=== PATIENT | female | born 1960 | race American Indian/Alaskan Native ===

== ENCOUNTER 2018-02-27 15:47 | Inpatient (IN) | payer MEDICARE, OTHER ==
[2018-02-27 16:29] VITALS: BMI 25.4
--- NOTE | 2018-02-27 17:16 | ED PDOC ---
Arrival/HPI - General Chief Complaint: High Blood Pressure Time Seen by Provider: 02/27/18 16:19 Historian: Patient - History of Present Illness Narrative History of Present Illness (Text): 02/27/18 17:12 57 year old female whose past medical history includes MS, who presents to the Emergency department for persistent elevated blood pressure. 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 Per patient's daughter she has been experiencing intermittent dizziness, left sided facial numbness and tingling, and increased difficulty ambulating. She was scheduled for a head and neck MRI with in March. Patient denies fevers, chills, cough, shortness of breath, chest pain, dyspnea on exertion, abdominal pain, nausea, vomiting, diarrhea, back pain, neck pain, headache, or any other complaint. 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 stroke 1988) Hx Multiple Sclerosis: Yes - Musculoskeletal/Rheumatological Hx Falls: No - Psychiatric Hx Substance Use: No - Surgical History Hx Section: Yes (x1) Hx Hysterectomy: Yes Hx Tonsillectomy: Yes Other/Comment: breasy cyst. back sx - Anesthesia Hx Anesthesia: Yes Hx Anesthesia Reactions: No Hx Malignant Hyperthermia: No - Suicidal Assessment Feels Threatened In Home Enviroment: No Family/Social History - Physician Review Nursing Documentation Reviewed: Yes Family/Social History: No Known Family HX Smoking Status: Never Smoked Hx Alcohol Use: No Hx Substance Use: No Hx Substance Use Treatment: No Allergies/Home Meds Allergies/Adverse Reactions: Allergies codeine Allergy (Verified 02/27/18 16:07) ITCHING Home Medications: Home Meds Medication Instructions Recorded Confirmed Dalfampridine [Ampyra] 10 mg PO BID 10/02/14 02/27/18 Gabapentin [Neurontin] 1 cap PO HS 02/27/18 02/27/18 Interferon Beta-1A/Albumin [Avonex 1 kit SC Q7D 02/27/18 02/27/18 30 Mcg Vial Kit] Rosuvastatin Calcium 10 mg PO DAILY 02/27/18 02/27/18 Review of Systems - Physician Review All systems were reviewed & negative as marked: Yes - Review of Systems Constitutional: absent: Fevers, Night Sweats Respiratory: absent: SOB, Cough Cardiovascular: absent: Chest Pain, SEXTON Gastrointestinal: absent: Abdominal Pain, Diarrhea, Nausea, Vomiting Genitourinary Female: absent: Urine Output Changes Musculoskeletal: absent: Back Pain, Neck Pain Neurological: Dizziness, Other (difficulty ambulating; left sided facial numbness and tingling) Physical Exam Vital Signs Reviewed: Yes Vital Signs Temp Pulse Resp BP Pulse Ox 02/27/18 16:11 98.9 F 79 18 132/79 96 Temperature: Afebrile Blood Pressure: Normal Pulse: Regular Respiratory Rate: Normal Appearance: Positive for: Well-Appearing Pain Distress: None Mental Status: Positive for: Alert and Oriented X 3 - Systems Exam Head: Present: Atraumatic, Normocephalic Pupils: Present: PERRL Extroacular Muscles: Present: EOMI Conjunctiva: Present: Normal Mouth: Present: Moist Mucous Membranes Neck: Present: Normal Range of Motion Respiratory/Chest: Present: Clear to Auscultation, Good Air Exchange. No: Respiratory Distress, Accessory Muscle Use Cardiovascular: Present: Regular Rate and Rhythm, Normal S1, S2. No: Murmurs Abdomen: No: Tenderness, Distention, Peritoneal Signs Back: Present: Normal Inspection. No: Paraspinal Tenderness Upper Extremity: Present: Normal Inspection, Other (Motor strength 5/5 for bilateral upper extremities.). No: Cyanosis, Edema Lower Extremity: Present: Normal Inspection, NORMAL PULSES (Distal pulses are equal and intact.), Other (Motor strength 5/5 for bilateral lower extremities.). No: Edema Neurological: Present: GCS=15, CN II-XII Intact, Speech Normal, Normal Sensory Function, Other (No facial asymetry, no Dysarthria. Gait:limping.). No: Gait Normal Skin: Present: Warm, Dry, Normal Color. No: Rashes Psychiatric: Present: Alert, Oriented x 3, Normal Insight, Normal Concentration Medical Decision Making ED Course and Treatment: 02/27/18 17:10 Impression: 57 year old female complaining of persistent elevated blood pressure. Differential Diagnosis included but are not limited to: MS flare TIA/CVA Cerebellar stroke Plan: -- Head CT without contrast -- Labs -- Blood work -- Brain MRI without contrast -- Urinalysis -- Reassess and disposition Prior Visits: Notes and results from previous visits were reviewed. Progress Notes: 03/05/18 18:24 CTH negative for acute intracranial abnormalities. UA shows findings consistent with UTI. Brain MRI ordered after consult with neurologist. Spoke with medical insurance collector and Dr. Lilly(house staff) regarding patient's condition. Patient updated on plan for admission and is in agreement. - Lab Interpretations I have reviewed the lab results: Yes - Scribe Statement The provider has reviewed the documentation as recorded by the Scribblanca Guevara Provider Scribe Attestation: All medical record entries made by the Scribe were at my direction and personally dictated by me. I have reviewed the chart and agree that the record accurately reflects my personal performance of the history, physical exam, medical decision making, and the department course for this patient. I have also personally directed, reviewed, and agree with the discharge instructions and disposition. Disposition/Present on Arrival - Present on Arrival Any Indicators Present on Arrival: No History of DVT/PE: No History of Uncontrolled Diabetes: No Urinary Catheter: No History of Decub. Ulcer: No History Surgical Site Infection Following: None - Disposition Have Diagnosis and Disposition been Completed?: Yes Diagnosis: Urinary tract infection Disposition: HOSPITALIZED Disposition Time: 18:35 Condition: GOOD
[2018-02-27 18:07] LABS: BASO # 0.01 K/mm3 (0.0-2.0); BASO % 0.3 % (0.0-3.0); EOS # 0.1 (0.0-0.7); EOS % 2.4 % (1.5-5.0); GRAN # 1.66 (1.4-6.5); GRAN % 43.9 % (50.0-68.0); HEMOGLOBIN 10.7 g/dL (12.0-16.0); LYMPH # 1.7 (1.2-3.4); LYMPH % 44.7 % (22.0-35.0); MEAN CELL VOLUME 88.8 fl (80.0-105.0); MEAN CORPUSCULAR HEMOGLOBIN 28.5 pg (25.0-35.0); MEAN CORPUSCULAR HGB CONC 32.1 g/dl (31.0-37.0); MEAN PLATELET VOLUME 10.3 fl (7.0-11.0); MONO # 0.3 (0.1-0.6); MONO % 8.7 % (1.0-6.0); RBC 3.75 10^6/uL (3.5-6.1); RED CELL DISTRIBUTION WIDTH 13.5 % (11.5-14.5); WHITE BLOOD COUNT 3.8 10^3/ul (4.5-11.0)
[2018-02-27 18:17] LABS: INR 0.95; PARTIAL THROMBOPLASTIN TIME 32.9 Seconds (25.1-36.5); PROTHROMBIN TIME 10.8 SECONDS (9.4-12.5)
[2018-02-27 18:22] LABS: ALBUMIN 4.4 g/dL (3.0-4.8); ALT/SGPT 16 U/L (7-56); AST/SGOT 39 U/L (14-36); BLOOD UREA NITROGEN 8 mg/dL (7-21); CALCIUM 9.1 mg/dL (8.4-10.5); GFR NON-AFRICAN AMERICAN > 60
[2018-02-27 18:52] LABS: URINE BILIRUBIN NEGATIVE (NEGATIVE); URINE BLOOD NEGATIVE (NEGATIVE); URINE GLUCOSE (UA) NEGATIVE (NEGATIVE); URINE LEUKOCYTE ESTERASE SMALL Leu/uL (NEGATIVE); URINE PROTEIN NEGATIVE mg/dL (<30 mg/dL); URINE UROBILINOGEN 0.2 E.U./dL (<1 E.U./dL)
[2018-02-27 18:58] LABS: URINE APPEARANCE SL CLOUDY (CLEAR); URINE COLOR YELLOW (YELLOW)
[2018-02-27 19:00] LABS: URINE BACTERIA MANY (NEG); URINE RBC NEGATIVE /hpf (0-2)
--- NOTE | 2018-02-27 20:08 | CP.PCM.HP ---
Addendum entered and electronically signed by Hector Bey DO 02/28/18 00:05: HTN 2/2 MS vs Medications: lopressor 25mg BID, hold if SBP<100, HR<60 URI/UTI: Rocephin and Levaquin, ID Consulted Anemia: fu anemia workup, Dr. 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 Patient reported it was in 180s but she did not have symptoms at that time. Patient has MS with last hospital admission due to relapse on 09/2014. Patient has been using cane to ambulate due to left sided weakness in upper and lower limbs. Weakness and numbness got worse yesterday on the same side. Left sided facial numbness and tingling reported as well without facial droop. She has been experiencing intermittent dizziness and increased difficulty ambulating lately and she knew that she is getting an MS flare. Patient reported that her daughter got URI last week and the patient got symptoms of dry cough, sore throat, nasal congestion for the past 5 days. She also reported that she had one episode of urine incontinence today but denied dysurea, urgency, frequncy. Patient denies fevers, chills, shortness of breath, chest pain, dyspnea on exertion, abdominal pain, nausea, vomiting, diarrhea, back pain, neck pain, headache, or any other complaint. PMHx: Multiple Sclerosis PSHx: , breasy cyst All: codeine (itching) Meds: Avonex, gabapentine, Ampyra SocHx: denies smoking, alcohol or drug use. 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 stroke 1988) Hx Multiple Sclerosis: Yes - MUSCULOSKELETAL/RHEUMATOLOGICAL Hx Falls: No - PSYCHIATRIC Hx Substance Use: No - SURGICAL HISTORY Hx Section: Yes (x1) Hx Hysterectomy: Yes Hx Tonsillectomy: Yes Other/Comment: breasy cyst. back sx - ANESTHESIA Hx Anesthesia: Yes Hx Anesthesia Reactions: No Hx Malignant Hyperthermia: No Meds Allergies/Adverse Reactions: Allergies Allergy/AdvReac Type Severity Reaction Status Date / Time codeine Allergy ITCHING Verified 02/27/18 16:07 Physical Exam - Constitutional Appears: Well, No Acute Distress - Head Exam Head Exam: ATRAUMATIC, NORMOCEPHALIC - Eye Exam Eye Exam: EOMI, Normal appearance, PERRL Pupil Exam: NORMAL ACCOMODATION, PERRL - ENT Exam ENT Exam: Mucous Membranes Moist, Normal Oropharynx - Neck Exam Neck exam: Positive for: Full Rom, Normal Inspection - Respiratory Exam Respiratory Exam: Clear to Auscultation Bilateral, NORMAL BREATHING PATTERN - Cardiovascular Exam Cardiovascular Exam: REGULAR RHYTHM, +S1, +S2. absent: Diastolic murmur, Rubs - GI/Abdominal Exam GI & Abdominal Exam: Normal Bowel Sounds, Soft. absent: Tenderness - Extremities Exam Extremities exam: Positive for: normal capillary refill, pedal pulses present. Negative for: pedal edema Additional comments: 5/5 RLL, 5/5 RUL 4/5 LLL, 4/5 TESHA decreased sensation on left sisde of the body compared to the right Results - Vital Signs Recent Vital Signs: Last Vital Signs Temp 98.9 F 02/27/18 19:04 Pulse 60 02/27/18 19:52 Resp 18 02/27/18 19:52 BP 148/78 02/27/18 19:52 Pulse Ox 100 02/27/18 19:52 - Labs Result Diagrams: 02/27/18 17:45 02/27/18 17:45 Labs: Laboratory Results - last 24 hr 02/27/18 02/27/18 02/27/18 17:45 17:45 17:45 WBC 3.8 L D RBC 3.75 Hgb 10.7 L Hct 33.3 L MCV 88.8 MCH 28.5 MCHC 32.1 RDW 13.5 Plt Count 248 MPV 10.3 Gran % 43.9 L Lymph % (Auto) 44.7 H Gaines % (Auto) 8.7 H Eos % (Auto) 2.4 Baso % (Auto) 0.3 Gran # 1.66 Lymph # (Auto) 1.7 Gaines # (Auto) 0.3 Eos # (Auto) 0.1 Baso # (Auto) 0.01 ESR 62 H PT 10.8 INR 0.95 APTT 32.9 Sodium 141 Potassium 3.9 Chloride 105 Carbon Dioxide 28 Anion Gap 12 BUN 8 Creatinine 0.7 Est GFR ( Amer) > 60 Est GFR (Non-Af Amer) > 60 Random Glucose 109 Calcium 9.1 Total Bilirubin 0.5 AST 39 H ALT 16 Alkaline Phosphatase 73 Total Protein 8.9 H Albumin 4.4 Globulin 4.5 Albumin/Globulin Ratio 1.0 L Urine Color Urine Appearance Urine pH Ur Specific [place] Urine Protein Urine Glucose (UA) Urine Ketones Urine Blood Urine Nitrate Urine Bilirubin Urine Urobilinogen Ur Leukocyte Esterase Urine RBC Urine WBC Ur Epithelial Cells Urine Bacteria 02/27/18 18:41 WBC RBC Hgb Hct MCV MCH MCHC RDW Plt Count MPV Gran % Lymph % (Auto) Gaines % (Auto) Eos % (Auto) Baso % (Auto) Gran # Lymph # (Auto) Gaines # (Auto) Eos # (Auto) Baso # (Auto) ESR PT INR APTT Sodium Potassium Chloride Carbon Dioxide Anion Gap BUN Creatinine Est GFR ( Amer) Est GFR (Non-Af Amer) Random Glucose Calcium Total Bilirubin AST ALT Alkaline Phosphatase Total Protein Albumin Globulin Albumin/Globulin Ratio Urine Color Yellow Urine Appearance Sl cloudy Urine pH 6.0 Ur Specific [place] 1.010 Urine Protein Negative Urine Glucose (UA) Negative Urine Ketones Negative Urine Blood Negative Urine Nitrate Positive H Urine Bilirubin Negative Urine Urobilinogen 0.2 Ur Leukocyte Esterase Small H Urine RBC Negative Urine WBC 2 - 5 Ur Epithelial Cells 3 - 4 Urine Bacteria Many Assessment & Plan - Assessment and Plan (Free Text) Assessment: 57 year old female with PMH of Multiple Sclerosis presents to the ED for elevated blood pressure 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 In ED, UA +LE and nitrate. elevated ESR. Brain MRI and head CT ordered. Patient admitted for possible MS flare Plan: Worsening left side weakness and decreased sensation in the setting of MS likely MS flare exacerbated by UTI versus URI vs bacterial infection CT head ordered MRI brain ordered PT eval/treat OT ESR elevated -62 UTI UA +LE and nitrate urine culture blood culture procal continue rocephin URI dry cough with recent sick contact rapid flu A/B Elevated blood pressure in 180s during outpatient visit. 152/79 in ED no h/o HTN continue to monitor Weight gain gained 10 lb in the last month. unintentional TSH ordered Prophylaxis DVT ppx: SCD GI ppx: protonix regular diet Case reviewed and paln discussed with attending Dr Lilly
[2018-02-27] MEDS ORDERED: Sodium Chloride 0.9% 1,000 ML IV SCH (21:15)
[2018-02-27 21:30] LABS: IRON 90 ug/dL (45-180)
[2018-02-27 21:40] LABS: % IRON SATURATION 26 % (20-55); TOTAL IRON BINDING CAPACITY 349 ug/dL (265-497)
[2018-02-28 07:25] LABS: BASO # 0.01 K/mm3 (0.0-2.0); BASO % 0.3 % (0.0-3.0); EOS # 0.1 (0.0-0.7); GRAN # 1.28 (1.4-6.5); GRAN % 36.8 % (50.0-68.0); HEMOGLOBIN 10.2 g/dL (12.0-16.0); LYMPH # 1.8 (1.2-3.4); LYMPH % 51.1 % (22.0-35.0); MEAN CELL VOLUME 90.1 fl (80.0-105.0); MEAN CORPUSCULAR HEMOGLOBIN 28.1 pg (25.0-35.0); MEAN CORPUSCULAR HGB CONC 31.2 g/dl (31.0-37.0); MEAN PLATELET VOLUME 10.5 fl (7.0-11.0); MONO # 0.3 (0.1-0.6); MONO % 7.8 % (1.0-6.0); RBC 3.63 10^6/uL (3.5-6.1); RED CELL DISTRIBUTION WIDTH 13.5 % (11.5-14.5); WHITE BLOOD COUNT 3.5 10^3/ul (4.5-11.0)
[2018-02-28 07:46] LABS: ALT/SGPT 14 U/L (7-56); AST/SGOT 30 U/L (14-36); BLOOD UREA NITROGEN 9 mg/dL (7-21); CALCIUM 8.5 mg/dL (8.4-10.5); GFR NON-AFRICAN AMERICAN > 60
--- NOTE | 2018-02-28 08:01 | CT ---
Date of service: 02/27/2018 PROCEDURE: CT HEAD WITHOUT CONTRAST. HISTORY: elevated bp w/ h/o MS COMPARISON: 03/18/2015 TECHNIQUE: Axial computed tomography images were obtained through the head/brain without intravenous contrast. Radiation dose: Total exam DLP = 750 mGy-cm. This CT exam was performed using one or more of the following dose reduction techniques: Automated exposure control, adjustment of the mA and/or kV according to patient size, and/or use of iterative reconstruction technique. FINDINGS: HEMORRHAGE: No intracranial hemorrhage. BRAIN: No mass effect or edema. Severe chronic microvascular changes are seen in the periventricular and deep white matter left greater than right. There is also moderate atrophy considering the patient's age. Findings are unchanged VENTRICLES: Unremarkable. No hydrocephalus. CALVARIUM: Unremarkable. PARANASAL SINUSES: Unremarkable as visualized. No significant inflammatory changes. MASTOID AIR CELLS: Unremarkable as visualized. No inflammatory changes. OTHER FINDINGS: The report concurs with the preliminary report IMPRESSION: No acute intracranial findings
--- NOTE | 2018-02-28 08:05 | CP.PCM.PN ---
<Sadaf Neal - Last Filed: 02/28/18 17:22> Subjective - Date & Time of Evaluation Date of Evaluation: 02/28/18 Time of Evaluation: 11:15 - Subjective Subjective: PGY-1 Medicine Progress note for Dr. Rao's service Patient seen and examined at bedside. Patient states she still had numbness on her right side including face, arms, and legs. Patient denies fevers, chills, chest pain, sob, n/v, constipation or diarrhea. Objective - Vital Signs/Intake and Output Vital Signs (last 24 hours): Temp Pulse Resp BP Pulse Ox 97.9 F 59 L 20 117/65 98 02/28/18 06:00 02/28/18 06:00 02/28/18 06:00 02/28/18 06:00 02/28/18 06:00 Intake and Output: 02/28/18 02/28/18 06:59 18:59 Intake Total 180 Balance 180 - Medications Medications: Current Medications Acetaminophen (Tylenol 325mg Tab) 650 mg PO Q4H PRN PRN Reason: Headache Aspirin (Ecotrin) 81 mg PO DAILY MELISSA Atorvastatin Calcium (Lipitor) 40 mg PO DIN MELISSA Famotidine (Pepcid) 40 mg PO HS MELISSA Ceftriaxone Sodium (Rocephin 1 Gram Ivpb) 1 gm in 100 mls @ 100 mls/hr IVPB DA JAIDA MELISSA; Protocol Sodium Chloride (Sodium Chloride 0.45%) 1,000 mls @ 100 mls/hr IV .Q10H MELISSA Levofloxacin/Dextrose (Levaquin 750mg) 750 mg IVPB DAILY MELISSA; Protocol Methylprednisolone (Solu-Medrol) 40 mg IVP Q12 MELISSA Metoprolol Tartrate (Lopressor) 25 mg PO BID MELISSA Pantoprazole Sodium (Protonix Ec Tab) 40 mg PO 0600 MELISSA - Labs Labs: 02/28/18 07:00 02/28/18 07:00 PT 10.8 SECONDS (9.4-12.5) 02/27/18 17:45 INR 0.95 02/27/18 17:45 APTT 32.9 Seconds (25.1-36.5) 02/27/18 17:45 - Constitutional Appears: Non-toxic, No Acute Distress - Head Exam Head Exam: NORMAL INSPECTION, NORMOCEPHALIC - Eye Exam Eye Exam: EOMI, Normal appearance. absent: Nystagmus, Scleral icterus - ENT Exam ENT Exam: Mucous Membranes Moist - Respiratory Exam Respiratory Exam: Clear to Ausculation Bilateral, NORMAL BREATHING PATTERN. absent: Decreased Breath Sounds, Rhonchi, Wheezes - Cardiovascular Exam Cardiovascular Exam: REGULAR RHYTHM, +S1, +S2 - GI/Abdominal Exam GI & Abdominal Exam: Soft, Normal Bowel Sounds. absent: Distended, Firm, Guarding, Rigid, Tenderness - Extremities Exam Extremities Exam: Normal Inspection. 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 Patient states she did not receive her interferon beta shot this week. Plan: Acute Exacerbation of MS flare Neuro Consulted- Dr. Smith- recommendations appreciated 02-28-18 MRI brain - Severe chronic demyelinating disease unchange 02-28-18 CT head- No acute intracranial findings Methylprednisolone 1gm Ampyra 10mg q12 1/2 NS @ 100mls/hr PT Eval pending UTI ID consulted- Dr. Koch - recommendations appreciated 02/27/18 U/A- positive nitrates + small leukocyte esterase Rocehpin 1gm Ucx, Bcx pending Hx of CVA Lipitor 40mg po din Aspirin 1mg po daily PPx GI ppx- Protonix 40mg po DVT ppx- SCDs <Jean-Pierre Rao - Last Filed: 03/03/18 17:14> Objective - Vital Signs/Intake and Output Vital Signs (last 24 hours): Temp Pulse Resp BP Pulse Ox 97.9 F 52 L 16 139/82 95 03/03/18 14:00 03/03/18 14:00 03/03/18 14:00 03/03/18 14:00 03/03/18 14:00 - Medications Medications: Current Medications Acetaminophen (Tylenol 325mg Tab) 650 mg PO Q4H PRN PRN Reason: Headache Last Admin: 03/01/18 12:23 Dose: 650 mg Acetaminophen/Butalbital/Caffeine (Fioricet) 1 tab PO Q4H PRN PRN Reason: Headache Last Admin: 03/03/18 09:44 Dose: 1 tab Aspirin (Ecotrin) 81 mg PO DAILY [facility] Last Admin: 03/03/18 09:41 Dose: 81 mg Atorvastatin Calcium (Lipitor) 40 mg PO DIN [facility] Last Admin: 03/02/18 18:07 Dose: 40 mg Home Med (Home Med) 1 unit PO Q12H [facility] Last Admin: 03/03/18 12:50 Dose: 1 unit Meropenem (Merrem Iv 1 Gm Premix) 1 gm in 50 mls @ 100 mls/hr IVPB Q8 [facility]; Protocol Last Admin: 03/03/18 13:08 Dose: 100 mls/hr Ketorolac Tromethamine (Toradol) 15 mg IVP Q6 PRN PRN Reason: Headache Last Admin: 03/03/18 13:11 Dose: 15 mg Metoprolol Tartrate (Lopressor) 25 mg PO BID [facility] Last Admin: 02/28/18 11:41 Dose: 25 mg Pantoprazole Sodium (Protonix Ec Tab) 40 mg PO 0600 [facility] Last Admin: 03/03/18 05:31 Dose: 40 mg - Labs Labs: 03/03/18 06:00 03/03/18 06:00 PT 10.8 SECONDS (9.4-12.5) 02/27/18 17:45 INR 0.95 02/27/18 17:45 APTT 32.9 Seconds (25.1-36.5) 02/27/18 17:45 Attending/Attestation - Attestation I have personally seen and examined this patient.: Yes I have fully participated in the care of the patient.: Yes I have reviewed all pertinent clinical information, including history, physical exam and plan: Yes Notes (Text): 03/03/18 17:14 Medical record note made by the resident after discussion with my direction and input after the patient was personally seen and examined by me. I have reviewed the chart and agree that the record accurately reflects by personal performance of the history, physical exam, data review, and medical decision-making, in the course for the patient. I have also personally directed the plan of care.
--- NOTE | 2018-02-28 08:40 | RAD ---
HISTORY: Cough COMPARISON: 10/02/2014. TECHNIQUE: Chest PA and lateral FINDINGS: LINES AND TUBES: None. LUNG AND PLEURA: The lungs are well inflated and clear. No pleural effusion or pneumothorax. HEART AND MEDIASTINUM: The heart is not enlarged. The hilar and mediastinal contours are within normal limits. SKELETAL STRUCTURES: The bony structures are within normal limits for the patient's age. VISUALIZED UPPER ABDOMEN: Normal. OTHER FINDINGS: None. IMPRESSION: No active pulmonary disease.
[2018-02-28] MEDS ORDERED: levoFLOXacin 750 mg in D5W 150 ML BAG IVPB SCH (10:00)
[2018-02-28] MEDS ORDERED: MethylPREDNISolone 40 mg Vial IVP SCH ×2 (10:00)
[2018-02-28] MEDS: methylPREDNISolone 1 GM in Sodium Chloride 0.9% 250 ML IV SCH (11:42)
[2018-02-28] MEDS: Sodium Chloride 0.45% 1,000 ML IV SCH ×2 (11:51→23:05)
--- NOTE | 2018-02-28 13:06 | MRI ---
Date of service: 02/27/2018 PROCEDURE: MRI BRAIN WITHOUT CONTRAST HISTORY: h/o ms w/ ataxic gait COMPARISON: 10/05/2014 MRI TECHNIQUE: Multiplanar, multisequence MR images of the brain were obtained without intravenous contrast enhancement. FINDINGS: HEMORRHAGE: None DWI: No evidence of an acute or early subacute infarction. BRAIN PARENCHYMA: Severe chronic demyelinating disease can be seen with confluent areas of abnormal signal intensity along the periventricular white matter including the temporal and occipital horns. There is also severe thinning of the corpus callosum. The findings are unchanged VENTRICLES: Unremarkable. No hydrocephalus. CRANIUM: Unremarkable. ORBITS: Grossly unremarkable. PARANASAL SINUSES/MASTOIDS: Clear VASCULAR SYSTEM: Skull base flow voids intact. OTHER FINDINGS: None. IMPRESSION: Severe chronic demyelinating disease unchanged
[2018-02-28] MEDS: AMPYRA 10 MG PO SCH (14:01)
[2018-02-28] MEDS: cefTRIAXone 1 gm 1 GM/100 ML BAG IVPB SCH (14:02)
[2018-02-28 16:45] LABS: FERRITIN 45.6 ng/mL
[2018-02-28 17:16] LABS: FOLATE 5.9 ng/mL
--- NOTE | 2018-02-28 19:27 | CON ---
DATE: 02/28/2018 HISTORY OF PRESENT ILLNESS: This is a 57-year-old woman who has had multiple sclerosis for many years, on Avonex; history of anemia; history of tension headaches, who came in for possible MS exacerbation and more numbness on right side of her face, arms and legs and status post IV Solu-Medrol today. Her MRI of the brain just showed some severe chronic demyelinating disease. No enhancement. She is on Ampyra for her gait and ambulation 10 mg every 12 and antibiotics for underlying urinary tract infection. She is on aspirin and Lipitor for stroke prevention. Currently, no focal weakness except for her baseline, slightly weaker. She will need some outpatient physical and occupational therapy. We will complete 3 days of total of Solu-Medrol 1 g IV and then can be discharged home. Fioricet can be given for every 4 hours one tab for her headaches and consider gabapentin 100 mg p.o. at bedtime for neuropathic relief. PAST MEDICAL HISTORY: As above. SOCIAL HISTORY: No illicit drug use, smoking or EtOH abuse. REVIEW OF SYSTEMS: Fourteen-point review of systems is negative except as per the HPI. MEDICATIONS: Reviewed by nurses' reconciliation. FAMILY HISTORY: Noncontributory. ALLERGIES: CODEINE. LABORATORY DATA: Sodium is 140, potassium 4.2, chloride 106, carbon dioxide 28, BUN of 9, creatinine 0.7, random glucose 71. PHYSICAL EXAMINATION: VITAL SIGNS: Temperature 98, pulse rate of 57, blood pressure 144/82, respiratory rate of 18, oxygen saturation 96% by room air. GENERAL: The patient is sitting up in bed, in no acute distress. HEENT: Atraumatic, normocephalic. PERRLA. Extraocular muscles intact. NECK: Supple. No JVD. No adenopathy noted. LUNGS: Clear to auscultation. No adventitious sounds. HEART: S1, S2. Normal rate and rhythm. No murmurs, rubs or gallops. ABDOMEN: Soft, nontender and nondistended. Bowel sounds are present. EXTREMITIES: No clubbing. No cyanosis. Peripheral pulses 2+ felt bilaterally. NEUROLOGIC: The patient is alert and oriented to person, place, month and year. Speech is fluent without any errors. Recall after 5 minutes is 0/3. Poor attention span, slow thought process. Cranial nerves II through XII are intact. Motor exam: Moves all extremities equally, but slightly weaker in the right lower extremity when compared to the left, which is from underlying MS. Sensory exam: Decreased light touch and pinprick up to the calves bilaterally. Decreased vibration of the toes. DTRs are 2+ throughout and brisk at the knees. Coordination: [id number] intact. No dysmetria noted. Her gait is wide based and uses cane for assistance. IMPRESSION: 1. This is a mild multiple sclerosis exacerbation triggered by underlying urinary tract infection. At this time, I would recommend outpatient physical and occupational therapy for rehabilitation, muscle reconditioning and balance strengthening exercises. 2. Continue with her Avonex injections as a disease modifying therapy for underlying multiple sclerosis. 3. Solu-Medrol 1 g x3 days and then can be discharged home. 4. Fioricet 1 tab every 4 hours for acute onset of headache. 5. Consider gabapentin 100 mg p.o. at bedtime for neuropathic relief. The patient is clinically stable. Alonso Smith MD
[2018-02-28] MEDS: Apap-Butalbital-Caffeine 325-50-40mg Tab PO PRN (23:04)
[2018-03-01] MEDS: AMPYRA 10 MG PO SCH ×2 (00:19→12:18)
[2018-03-01] MEDS: Pantoprazole 40 mg EC Tab PO SCH (05:47)
[2018-03-01] MEDS: Sodium Chloride 0.45% 1,000 ML IV SCH (05:59)
--- NOTE | 2018-03-01 06:13 | CON ---
DATE: 02/28/2018 LOCATION: The patient is in room 571, bed 2. HISTORY OF PRESENT ILLNESS: The patient is a 57-year-old female with past medical history significant for multiple sclerosis, hypertension and patient was seen in the emergency room, given the diagnosis of multiple sclerosis exacerbation. Patient was seen in the emergency room because of headache, was found to have elevated blood pressure and given the diagnosis of multiple sclerosis exacerbation, concerned about infection. Patient denies any fevers, any chills. No chest pain, shortness of breath or cough at this time. REVIEW OF SYSTEMS: A 12-point review of systems is performed. No fevers. No chills. No chest pain. No dysuria or frequency. PAST MEDICAL HISTORY: Significant for multiple sclerosis, hypertension, high cholesterol, questionable cerebrovascular accident in 1988. PAST SURGICAL HISTORY: Significant for hysterectomy, tonsillectomy, breast cyst biopsy, . MEDICATIONS AT HOME: Reveals rosuvastatin, gabapentin, interferon. ALLERGIES: PATIENT IS ALLERGIC TO CODEINE. PHYSICAL EXAMINATION: GENERAL: Patient is in bed, in no acute distress, answering questions appropriately. VITAL SIGNS: Temperature 98, blood pressure is 150/100, respiratory rate 20, heart rate of 87. HEENT: Unremarkable. NECK: Supple. LUNGS: Have decreased breath sounds. HEART: Normal S1, S2. ABDOMEN: Soft, nontender. LABORATORY EXAMINATION: Reveals a white count of 3.8, hemoglobin of 10, platelets of 248. Coagulation is noted. Differential and white count is noted. Sed rate of 62. Chemistries noted with procalcitonin is noted. Urinalysis, 2 to 5 wbc's. Patient had a CAT scan of the head which is reported with no acute findings. Chest x-ray, lungs are inflated and clear, no pleural effusion or pneumothorax, no active pulmonary disease. note is reviewed. Review of orders revealed blood cultures, urine cultures are pending and patient is currently on ceftriaxone. Patient also had an MRI of the brain, which showed severe chronic demyelinating disease, unchanged. ASSESSMENT AND PLAN: This is a 57-year-old female with multiple sclerosis, hypertension, high cholesterol, cerebrovascular accident, admitted with urinary tract infection, although she is not having any symptoms at this time and patient with uncontrolled hypertension. We will check on the blood cultures, urine cultures. We will follow closely with you. Chencho Koch MD [facility] # [id number]
[2018-03-01 06:22] LABS: GRAN # 4.31 (1.4-6.5); GRAN % 79.4 % (50.0-68.0); HEMOGLOBIN 10.7 g/dL (12.0-16.0); LYMPH % 18.6 % (22.0-35.0); MEAN CELL VOLUME 89.5 fl (80.0-105.0); MEAN CORPUSCULAR HEMOGLOBIN 28.8 pg (25.0-35.0); MEAN CORPUSCULAR HGB CONC 32.2 g/dl (31.0-37.0); MEAN PLATELET VOLUME 10.6 fl (7.0-11.0); MONO # 0.1 (0.1-0.6); PLATELET COUNT 274 10^3/uL (120.0-450.0); RBC 3.71 10^6/uL (3.5-6.1); RED CELL DISTRIBUTION WIDTH 13.2 % (11.5-14.5); WHITE BLOOD COUNT 5.4 10^3/ul (4.5-11.0)
[2018-03-01 07:15] LABS: ALBUMIN 4.3 g/dL (3.0-4.8); ALT/SGPT 27 U/L (7-56); AST/SGOT 57 U/L (14-36); BLOOD UREA NITROGEN 10 mg/dL (7-21); GFR NON-AFRICAN AMERICAN > 60
[2018-03-01] MEDS: Apap-Butalbital-Caffeine 325-50-40mg Tab PO PRN ×3 (09:36→21:30)
[2018-03-01] MEDS: methylPREDNISolone 1 GM in Sodium Chloride 0.9% 250 ML IV SCH (09:37)
[2018-03-01] MEDS: cefTRIAXone 1 gm 1 GM/100 ML BAG IVPB SCH (12:18)
--- NOTE | 2018-03-01 16:34 | CP.PCM.PN ---
Subjective - Date & Time of Evaluation Date of Evaluation: 03/01/18 Time of Evaluation: 09:35 - Subjective Subjective: No fevers, no dysuria, no nausea, no diarrhea. Objective - Vital Signs/Intake and Output Vital Signs (last 24 hours): Temp Pulse Resp BP Pulse Ox 98.2 F 65 18 143/88 98 03/01/18 14:00 03/01/18 14:00 03/01/18 14:00 03/01/18 14:00 03/01/18 14:00 Intake and Output: 03/01/18 03/01/18 06:59 18:59 Intake Total 1800 Output Total 1 Balance 1800 -1 - Medications Medications: Current Medications Acetaminophen (Tylenol 325mg Tab) 650 mg PO Q4H PRN PRN Reason: Headache Last Admin: 03/01/18 12:23 Dose: 650 mg Acetaminophen/Butalbital/Caffeine (Fioricet) 1 tab PO Q4H PRN PRN Reason: Headache Last Admin: 03/01/18 16:09 Dose: 1 tab Aspirin (Ecotrin) 81 mg PO DAILY [facility] Last Admin: 03/01/18 09:36 Dose: 81 mg Atorvastatin Calcium (Lipitor) 40 mg PO DIN [facility] Last Admin: 03/01/18 16:09 Dose: 40 mg Home Med (Home Med) 1 unit PO Q12H [facility] Last Admin: 03/01/18 12:18 Dose: 1 unit Ceftriaxone Sodium (Rocephin 1 Gram Ivpb) 1 gm in 100 mls @ 100 mls/hr IVPB DAILY [facility]; Protocol Last Admin: 03/01/18 12:18 Dose: 100 mls/hr Methylprednisolone 1 gm/ (Sodium Chloride) 250 mls @ 500 mls/hr IV DAILY [facility] Stop: 03/02/18 10:29 Last Admin: 03/01/18 09:37 Dose: 500 mls/hr Metoprolol Tartrate (Lopressor) 25 mg PO BID [facility] Last Admin: 02/28/18 11:41 Dose: 25 mg Pantoprazole Sodium (Protonix Ec Tab) 40 mg PO 0600 [facility] Last Admin: 03/01/18 05:47 Dose: 40 mg - Labs Labs: 03/01/18 06:00 03/01/18 06:00 PT 10.8 SECONDS (9.4-12.5) 10/03/18 17:45 INR 0.95 02/27/18 17:45 APTT 32.9 Seconds (25.1-36.5) 02/27/18 17:45 - Constitutional Appears: Chronically Ill - Head Exam Head Exam: NORMAL INSPECTION - Respiratory Exam Respiratory Exam: Decreased Breath Sounds - Cardiovascular Exam Cardiovascular Exam: +S1, +S2 - GI/Abdominal Exam GI & Abdominal Exam: Soft. absent: Tenderness Assessment and Plan - Assessment and Plan (Free Text) Plan: Assessment consider UTI with gram negative bacilli multiple sclerosis HTN dyslipidemia possible CVA in 1988 S/P hysterectomy S/P breast cyst biopsy S/P S/P tonsillectomy Plan continue Rocephin day 2 pending identification and sensitivities of the gram negative bacilli in the urine will continue to monitor clinically
--- NOTE | 2018-03-01 17:20 | CP.PCM.PN ---
<Sadaf Neal - Last Filed: 03/01/18 17:17> Subjective - Date & Time of Evaluation Date of Evaluation: 03/01/18 Time of Evaluation: 11:00 - Subjective Subjective: PGY-1 Medicine Progress Note for Dr. Rao's service Patient seen and examined at bedside. Patient states that she feels that her left sided weakness has improved since admission. She reports frontal and sinus headache that did not resolve with Fioricet or Tylenol. Patient has had similar headache in the past, for which she experiences relief with Aleve. She reports productive cough overnight, but denies SOB, rhinorrhea, fever, chills, CP, n/v, constipation or diarrhea. Objective - Vital Signs/Intake and Output Vital Signs (last 24 hours): Temp Pulse Resp BP Pulse Ox 98.2 F 65 18 143/88 98 03/01/18 14:00 03/01/18 14:00 03/01/18 14:00 03/01/18 14:00 03/01/18 14:00 Intake and Output: 03/01/18 03/01/18 06:59 18:59 Intake Total 1800 Output Total 1 Balance 1800 -1 - Medications Medications: Current Medications Acetaminophen (Tylenol 325mg Tab) 650 mg PO Q4H PRN PRN Reason: Headache Last Admin: 03/01/18 12:23 Dose: 650 mg Acetaminophen/Butalbital/Caffeine (Fioricet) 1 tab PO Q4H PRN PRN Reason: Headache Last Admin: 03/01/18 16:09 Dose: 1 tab Aspirin (Ecotrin) 81 mg PO DAILY [facility] Last Admin: 03/01/18 09:36 Dose: 81 mg Atorvastatin Calcium (Lipitor) 40 mg PO DIN [facility] Last Admin: 03/01/18 16:09 Dose: 40 mg Home Med (Home Med) 1 unit PO Q12H [facility] Last Admin: 03/01/18 12:18 Dose: 1 unit Ceftriaxone Sodium (Rocephin 1 Gram Ivpb) 1 gm in 100 mls @ 100 mls/hr IVPB DAILY [facility]; Protocol Last Admin: 03/01/18 12:18 Dose: 100 mls/hr Methylprednisolone 1 gm/ (Sodium Chloride) 250 mls @ 500 mls/hr IV DAILY [facility] Stop: 03/02/18 10:29 Last Admin: 03/01/18 09:37 Dose: 500 mls/hr Metoprolol Tartrate (Lopressor) 25 mg PO BID [facility] Last Admin: 02/28/18 11:41 Dose: 25 mg Pantoprazole Sodium (Protonix Ec Tab) 40 mg PO 0600 [facility] Last Admin: 03/01/18 05:47 Dose: 40 mg - Labs Labs: 03/01/18 06:00 03/01/18 06:00 PT 10.8 SECONDS (9.4-12.5) 02/27/18 17:45 INR 0.95 02/27/18 17:45 APTT 32.9 Seconds (25.1-36.5) 02/27/18 17:45 - Constitutional Appears: Non-toxic, No Acute Distress - Head Exam Head Exam: NORMAL INSPECTION, NORMOCEPHALIC - Eye Exam Eye Exam: EOMI, Normal appearance. absent: Nystagmus, Scleral icterus - Respiratory Exam Respiratory Exam: Clear to Ausculation Bilateral, NORMAL BREATHING PATTERN. absent: Rales, Rhonchi, Wheezes - Cardiovascular Exam Cardiovascular Exam: REGULAR RHYTHM, +S1, +S2 - GI/Abdominal Exam GI & Abdominal Exam: Soft, Normal Bowel Sounds. absent: Distended, Firm, Guarding, Tenderness - Extremities Exam Extremities Exam: Normal Inspection. absent: Calf Tenderness, Pedal Edema - Neurological Exam Neurological Exam: Awake, Oriented x3 Neuro motor strength exam: Left Upper Extremity: 5, Right Upper Extremity: 5, Left Lower Extremity: 5, Right Lower Extremity: 5 Additional comments: sensory deficits on upper right extremity and lower extremity as compared to left; however overall improved since admission - Psychiatric Exam Psychiatric exam: Normal Affect, Normal Mood - Skin Skin Exam: Intact, Normal Color Assessment and Plan - Assessment and Plan (Free Text) Assessment: 57 year old female with PMH of Multiple Sclerosis, anemia, and stroke (>20 years) admitted for elevated blood 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 Treated with 1000g x 3 with solumedrol Plan: Acute Exacerbation of MS flare Neuro Consulted- Dr. Smith- MS exacerbation triggered by UTI, f/u outpatient PT/OT, continue Avonex, continue Solumedrol 1g IV for total of 3 days then discharge home, Fioricet 1 tab every 4 hours for MIJARES, consider 100mg PO gabapentin at bedtime for neuropathic pain. 02-28-18 MRI brain - Severe chronic demyelinating disease unchanged 02-28-18 CT head- No acute intracranial findings Methylprednisolone 1gm IV- day 2 Ampyra 10mg q12 PT Eval pending UTI ID consulted- Dr. Koch - pending blood and urine cultures, will monitor closely. 02/27/18 U/A- positive nitrates + small leukocyte esterase Rocehpin 1gm Ucx, Bcx pending Hx of CVA Lipitor 40mg po din Aspirin 1mg po daily PPx GI ppx- Protonix 40mg po DVT ppx- SCDs Medical Management discussed with Dr. Jalen Neal PGY-1 <Jean-Pierre Rao - Last Filed: 03/03/18 17:14> Objective - Vital Signs/Intake and Output Vital Signs (last 24 hours): Temp Pulse Resp BP Pulse Ox 97.9 F 52 L 16 139/82 95 03/03/18 14:00 03/03/18 14:00 03/03/18 14:00 03/03/18 14:00 03/03/18 14:00 - Medications Medications: Current Medications Acetaminophen (Tylenol 325mg Tab) 650 mg PO Q4H PRN PRN Reason: Headache Last Admin: 03/01/18 12:23 Dose: 650 mg Acetaminophen/Butalbital/Caffeine (Fioricet) 1 tab PO Q4H PRN PRN Reason: Headache Last Admin: 03/03/18 09:44 Dose: 1 tab Aspirin (Ecotrin) 81 mg PO DAILY [facility] Last Admin: 03/03/18 09:41 Dose: 81 mg Atorvastatin Calcium (Lipitor) 40 mg PO DIN [facility] Last Admin: 03/02/18 18:07 Dose: 40 mg Home Med (Home Med) 1 unit PO Q12H [facility] Last Admin: 03/03/18 12:50 Dose: 1 unit Meropenem (Merrem Iv 1 Gm Premix) 1 gm in 50 mls @ 100 mls/hr IVPB Q8 [facility]; Protocol Last Admin: 03/03/18 13:08 Dose: 100 mls/hr Ketorolac Tromethamine (Toradol) 15 mg IVP Q6 PRN PRN Reason: Headache Last Admin: 03/03/18 13:11 Dose: 15 mg Metoprolol Tartrate (Lopressor) 25 mg PO BID [facility] Last Admin: 02/28/18 11:41 Dose: 25 mg Pantoprazole Sodium (Protonix Ec Tab) 40 mg PO 0600 [facility] Last Admin: 03/03/18 05:31 Dose: 40 mg - Labs Labs: 03/03/18 06:00 03/03/18 06:00 PT 10.8 SECONDS (9.4-12.5) 02/27/18 17:45 INR 0.95 02/27/18 17:45 APTT 32.9 Seconds (25.1-36.5) 02/27/18 17:45 Attending/Attestation - Attestation I have personally seen and examined this patient.: Yes I have fully participated in the care of the patient.: Yes I have reviewed all pertinent clinical information, including history, physical exam and plan: Yes Notes (Text): 03/03/18 17:13 Medical record note made by the resident after discussion with my direction and input after the patient was personally seen and examined by me. I have reviewed the chart and agree that the record accurately reflects by personal performance of the history, physical exam, data review, and medical decision-making, in the course for the patient. I have also personally directed the plan of care.
[2018-03-02] MEDS: AMPYRA 10 MG PO SCH ×2 (00:54→12:17)
[2018-03-02 06:26] LABS: GRAN # 6.22 (1.4-6.5); LYMPH # 0.9 (1.2-3.4); LYMPH % 12.1 % (22.0-35.0); MEAN CORPUSCULAR HEMOGLOBIN 28.8 pg (25.0-35.0); MEAN CORPUSCULAR HGB CONC 32.4 g/dl (31.0-37.0); MEAN PLATELET VOLUME 10.8 fl (7.0-11.0); MONO # 0.4 (0.1-0.6); MONO % 4.9 % (1.0-6.0); RBC 3.47 10^6/uL (3.5-6.1); RED CELL DISTRIBUTION WIDTH 13.7 % (11.5-14.5); WHITE BLOOD COUNT 7.5 10^3/ul (4.5-11.0)
[2018-03-02] MEDS: Pantoprazole 40 mg EC Tab PO SCH ×2 (06:40→22:57)
[2018-03-02 06:42] LABS: ALT/SGPT 27 U/L (7-56); AST/SGOT 37 U/L (14-36); BLOOD UREA NITROGEN 13 mg/dL (7-21); CALCIUM 8.8 mg/dL (8.4-10.5); GFR NON-AFRICAN AMERICAN > 60
[2018-03-02] MEDS: cefTRIAXone 1 gm 1 GM/100 ML BAG IVPB SCH (09:58)
[2018-03-02] MEDS: methylPREDNISolone 1 GM in Sodium Chloride 0.9% 250 ML IV SCH (09:58)
[2018-03-02] MEDS: Meropenem IV 1 gm in NS 1 GM/50 ML BAG IVPB SCH ×2 (14:04→21:19)
--- NOTE | 2018-03-02 14:08 | CARD ---
APPROVED REPORT Date of service: 03/02/2018 EKG Measurement Heart [id number] MI [id number] <Conclusion> Sinus bradycardia T wave abnormality consider anterior wall ischemia Abnormal ECG
--- NOTE | 2018-03-02 16:05 | CP.PCM.PN ---
<Sadaf Neal - Last Filed: 03/02/18 16:02> Subjective - Date & Time of Evaluation Date of Evaluation: 03/02/18 Time of Evaluation: 09:15 - Subjective Subjective: PGY-1 Medicine Progress Note for Dr. Rao's service Patient seen and examined at bedside. Patient offers no acute complaints. Patient denies chest pain, sob, fevers, chills, dysuria, increased urinary frequency, n/v, constipation or diarrhea, headaches. Objective - Vital Signs/Intake and Output Vital Signs (last 24 hours): Temp Pulse Resp BP Pulse Ox 97.4 F L 53 L 18 133/73 99 03/02/18 08:18 03/02/18 08:18 03/02/18 08:18 03/02/18 08:18 03/02/18 08:18 Intake and Output: 03/02/18 03/02/18 06:59 18:59 Intake Total 240 1080 Balance 240 1080 - Medications Medications: Current Medications Acetaminophen (Tylenol 325mg Tab) 650 mg PO Q4H PRN PRN Reason: Headache Last Admin: 03/01/18 12:23 Dose: 650 mg Acetaminophen/Butalbital/Caffeine (Fioricet) 1 tab PO Q4H PRN PRN Reason: Headache Last Admin: 03/01/18 21:30 Dose: 1 tab Aspirin (Ecotrin) 81 mg PO DAILY [facility] Last Admin: 03/02/18 09:59 Dose: 81 mg Atorvastatin Calcium (Lipitor) 40 mg PO DIN [facility] Last Admin: 03/01/18 16:09 Dose: 40 mg Home Med (Home Med) 1 unit PO Q12H [facility] Last Admin: 03/02/18 12:17 Dose: 1 unit Meropenem (Merrem Iv 1 Gm Premix) 1 gm in 50 mls @ 100 mls/hr IVPB Q8 [facility]; Pr otocol Last Admin: 03/02/18 14:04 Dose: 100 mls/hr Metoprolol Tartrate (Lopressor) 25 mg PO BID [facility] Last Admin: 02/28/18 11:41 Dose: 25 mg Pantoprazole Sodium (Protonix Ec Tab) 40 mg PO 0600 [facility] Last Admin: 03/02/18 06:40 Dose: 40 mg - Labs Labs: 03/02/18 05:00 03/02/18 05:00 PT 10.8 SECONDS (9.4-12.5) 02/27/18 17:45 INR 0.95 02/27/18 17:45 APTT 32.9 Seconds (25.1-36.5) 02/27/18 17:45 - Constitutional Appears: Non-toxic, No Acute Distress - Head Exam Head Exam: NORMAL INSPECTION, NORMOCEPHALIC - Eye Exam Eye Exam: EOMI, Normal appearance. absent: Nystagmus - ENT Exam ENT Exam: Mucous Membranes Moist - Cardiovascular Exam Cardiovascular Exam: Bradycardia, REGULAR RHYTHM, +S1, +S2 - GI/Abdominal Exam GI & Abdominal Exam: Soft, Normal Bowel Sounds. 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 Treated with 1000g x 3 with solumedrol; Urine cx positive for klebsiella; Started patient on meropenem Plan: Acute Exacerbation of MS flare Neuro Consulted- Dr. Smith- MS exacerbation triggered by UTI, f/u outpatient PT/OT, continue Avonex, continue Solumedrol 1g IV for total of 3 days then discharge home, Fioricet 1 tab every 4 hours for MIJARES, consider 100mg PO gabapentin at bedtime for neuropathic pain. 02-28-18 MRI brain - Severe chronic demyelinating disease unchanged 02-28-18 CT head- No acute intracranial findings Methylprednisolone 1gm IV- day 3 and completed Ampyra 10mg q12 UTI ID consulted- Dr. Koch - pending blood and urine cultures, will monitor closely. 02/27/18 U/A- positive nitrates + small leukocyte esterase Meropenem Ucx positive for Klebsiella Hx of CVA Lipitor 40mg po din Aspirin 1mg po daily Hx of Headaches Tylenol 650mg po prn Fioricet 1 tab po q4h prn PPx GI ppx- Protonix 40mg po DVT ppx- SCDs Medical Management discussed with Dr. Jalen Neal PGY-1 <Jean-Pierre Rao - Last Filed: 03/03/18 17:13> Objective - Vital Signs/Intake and Output Vital Signs (last 24 hours): Temp Pulse Resp BP Pulse Ox 97.9 F 52 L 16 139/82 95 03/03/18 14:00 03/03/18 14:00 03/03/18 14:00 03/03/18 14:00 03/03/18 14:00 - Medications Medications: Current Medications Acetaminophen (Tylenol 325mg Tab) 650 mg PO Q4H PRN PRN Reason: Headache Last Admin: 03/01/18 12:23 Dose: 650 mg Acetaminophen/Butalbital/Caffeine (Fioricet) 1 tab PO Q4H PRN PRN Reason: Headache Last Admin: 03/03/18 09:44 Dose: 1 tab Aspirin (Ecotrin) 81 mg PO DAILY [facility] Last Admin: 03/03/18 09:41 Dose: 81 mg Atorvastatin Calcium (Lipitor) 40 mg PO DIN [facility] Last Admin: 03/02/18 18:07 Dose: 40 mg Home Med (Home Med) 1 unit PO Q12H [facility] Last Admin: 03/03/18 12:50 Dose: 1 unit Meropenem (Merrem Iv 1 Gm Premix) 1 gm in 50 mls @ 100 mls/hr IVPB Q8 [facility]; Protocol Last Admin: 03/03/18 13:08 Dose: 100 mls/hr Ketorolac Tromethamine (Toradol) 15 mg IVP Q6 PRN PRN Reason: Headache Last Admin: 03/03/18 13:11 Dose: 15 mg Metoprolol Tartrate (Lopressor) 25 mg PO BID [facility] Last Admin: 02/28/18 11:41 Dose: 25 mg Pantoprazole Sodium (Protonix Ec Tab) 40 mg PO 0600 [facility] Last Admin: 03/03/18 05:31 Dose: 40 mg - Labs Labs: 03/03/18 06:00 03/03/18 06:00 PT 10.8 SECONDS (9.4-12.5) 02/27/18 17:45 INR 0.95 02/27/18 17:45 APTT 32.9 Seconds (25.1-36.5) 02/27/18 17:45 Attending/Attestation - Attestation I have personally seen and examined this patient.: Yes I have fully participated in the care of the patient.: Yes I have reviewed all pertinent clinical information, including history, physical exam and plan: Yes Notes (Text): 03/03/18 17:10 Medical record note made by the resident after discussion with my direction and input after the patient was personally seen and examined by me. I have reviewed the chart and agree that the record accurately reflects by personal performance of the history, physical exam, data review, and medical decision-making, in the course for the patient. I have also personally directed the plan of care. 57 year old female with PMH of Multiple Sclerosis, anemia, and stroke (>20 years) was admitted for, UTI, and MS flare. she was Treated with 1000g x 3 with solumedrol; and IV Ceftriaxone .Symptoms improved but Urine cx has come back positive for klebsiella ESBL Started patient on meropenem by ID, also sensitive to cipro, We will discuss with ID regarding oral antibiotics.
--- NOTE | 2018-03-02 16:31 | CP.PCM.PN ---
Subjective - Date & Time of Evaluation Date of Evaluation: 03/02/18 Time of Evaluation: 14:25 - Subjective Subjective: No fevers, no dysuria, no nausea or diarrhea. Objective - Vital Signs/Intake and Output Vital Signs (last 24 hours): Temp Pulse Resp BP Pulse Ox 97.4 F L 53 L 18 133/73 99 03/02/18 08:18 03/02/18 08:18 03/02/18 08:18 03/02/18 08:18 03/02/18 08:18 Intake and Output: 03/02/18 03/02/18 06:59 18:59 Intake Total 240 Balance 240 - Medications Medications: Current Medications Acetaminophen (Tylenol 325mg Tab) 650 mg PO Q4H PRN PRN Reason: Headache Last Admin: 03/01/18 12:23 Dose: 650 mg Acetaminophen/Butalbital/Caffeine (Fioricet) 1 tab PO Q4H PRN PRN Reason: Headache Last Admin: 03/01/18 21:30 Dose: 1 tab Aspirin (Ecotrin) 81 mg PO DAILY [facility] Last Admin: 03/02/18 09:59 Dose: 81 mg Atorvastatin Calcium (Lipitor) 40 mg PO DIN [facility] Last Admin: 03/01/18 16:09 Dose: 40 mg Home Med (Home Med) 1 unit PO Q12H [facility] Last Admin: 03/02/18 12:17 Dose: 1 unit Metoprolol Tartrate (Lopressor) 25 mg PO BID [facility] Last Admin: 02/28/18 11:41 Dose: 25 mg Pantoprazole Sodium (Protonix Ec Tab) 40 mg PO 0600 [facility] Last Admin: 03/02/18 06:40 Dose: 40 mg - Labs Labs: 03/02/18 05:00 03/02/18 05:00 PT 10.8 SECONDS (9.4-12.5) 02/27/18 17:45 INR 0.95 02/27/18 17:45 APTT 32.9 Seconds (25.1-36.5) 02/27/18 17:45 - Constitutional Appears: No Acute Distress, Chronically Ill - Head Exam Head Exam: NORMAL INSPECTION - Respiratory Exam Respiratory Exam: Decreased Breath Sounds - Cardiovascular Exam Cardiovascular Exam: +S1, +S2 - GI/Abdominal Exam GI & Abdominal Exam: Soft. absent: Tenderness Assessment and Plan - Assessment and Plan (Free Text) Plan: Assessment UTI with ESBL Klebsiella multiple sclerosis HTN dyslipidemia possible CVA in 1988 S/P hysterectomy S/P breast cyst biopsy S/P S/P tonsillectomy Plan will switch to Merrem - will need 7-10 days of antibiotics will continue to monitor clinically
[2018-03-02] MEDS: Sodium Chloride 0.45% 1,000 ML IV SCH ×2 (23:01→23:02)
[2018-03-03] MEDS: AMPYRA 10 MG PO SCH ×2 (00:57→12:50)
[2018-03-03] MEDS: Pantoprazole 40 mg EC Tab PO SCH (05:31)
[2018-03-03] MEDS: Meropenem IV 1 gm in NS 1 GM/50 ML BAG IVPB SCH ×3 (05:31→21:28)
--- NOTE | 2018-03-03 06:28 | CP.PCM.PN ---
Objective - Vital Signs/Intake and Output Vital Signs (last 24 hours): Temp Pulse Resp BP Pulse Ox 98.1 F 56 L 16 125/69 96 03/02/18 22:00 03/02/18 22:00 03/02/18 22:00 03/02/18 22:00 03/02/18 22:00 Intake and Output: 03/02/18 03/03/18 18:59 06:59 Intake Total 1080 Balance 1080 - Medications Medications: Current Medications Acetaminophen (Tylenol 325mg Tab) 650 mg PO Q4H PRN PRN Reason: Headache Last Admin: 03/01/18 12:23 Dose: 650 mg Acetaminophen/Butalbital/Caffeine (Fioricet) 1 tab PO Q4H PRN PRN Reason: Headache Last Admin: 03/01/18 21:30 Dose: 1 tab Aspirin (Ecotrin) 81 mg PO DAILY [facility] Last Admin: 03/02/18 09:59 Dose: 81 mg Atorvastatin Calcium (Lipitor) 40 mg PO DIN [facility] Last Admin: 03/02/18 18:07 Dose: 40 mg Home Med (Home Med) 1 unit PO Q12H [facility] Last Admin: 03/03/18 00:57 Dose: 1 unit Meropenem (Merrem Iv 1 Gm Premix) 1 gm in 50 mls @ 100 mls/hr IVPB Q8 [facility]; Protocol Last Admin: 03/03/18 05:31 Dose: 100 mls/hr Metoprolol Tartrate (Lopressor) 25 mg PO BID [facility] Last Admin: 02/28/18 11:41 Dose: 25 mg Pantoprazole Sodium (Protonix Ec Tab) 40 mg PO 0600 [facility] Last Admin: 03/03/18 05:31 Dose: 40 mg - Labs Labs: 03/02/18 05:00 03/02/18 05:00 PT 10.8 SECONDS (9.4-12.5) 02/27/18 17:45 INR 0.95 02/27/18 17:45 APTT 32.9 Seconds (25.1-36.5) 02/27/18 17:45
[2018-03-03 07:39] LABS: GRAN # 5.21 (1.4-6.5); GRAN % 81.9 % (50.0-68.0); HEMOGLOBIN 9.8 g/dL (12.0-16.0); LYMPH # 0.9 (1.2-3.4); LYMPH % 13.5 % (22.0-35.0); MEAN CELL VOLUME 88.6 fl (80.0-105.0); MEAN CORPUSCULAR HEMOGLOBIN 28.7 pg (25.0-35.0); MEAN CORPUSCULAR HGB CONC 32.5 g/dl (31.0-37.0); MEAN PLATELET VOLUME 10.9 fl (7.0-11.0); MONO # 0.3 (0.1-0.6); MONO % 4.6 % (1.0-6.0); RBC 3.41 10^6/uL (3.5-6.1); RED CELL DISTRIBUTION WIDTH 13.8 % (11.5-14.5); WHITE BLOOD COUNT 6.4 10^3/ul (4.5-11.0)
[2018-03-03] MEDS: Apap-Butalbital-Caffeine 325-50-40mg Tab PO PRN (09:44)
[2018-03-03 11:01] LABS: ALBUMIN 3.8 g/dL (3.0-4.8); AST/SGOT 33 U/L (14-36); BLOOD UREA NITROGEN 15 mg/dL (7-21); CALCIUM 8.8 mg/dL (8.4-10.5); GFR NON-AFRICAN AMERICAN > 60
[2018-03-03 11:02] LABS: ALT/SGPT 22 U/L (7-56)
--- NOTE | 2018-03-03 15:46 | CP.PCM.PN ---
Subjective - Date & Time of Evaluation Date of Evaluation: 03/03/18 Time of Evaluation: 12:15 - Subjective Subjective: No nausea, no fevers, not in distress. Objective - Vital Signs/Intake and Output Vital Signs (last 24 hours): Temp Pulse Resp BP Pulse Ox 97.4 F L 61 20 119/75 99 03/03/18 08:35 03/03/18 08:35 03/03/18 08:35 03/03/18 08:35 03/03/18 08:35 - Medications Medications: Current Medications Acetaminophen (Tylenol 325mg Tab) 650 mg PO Q4H PRN PRN Reason: Headache Last Admin: 03/01/18 12:23 Dose: 650 mg Acetaminophen/Butalbital/Caffeine (Fioricet) 1 tab PO Q4H PRN PRN Reason: Headache Last Admin: 03/01/18 21:30 Dose: 1 tab Aspirin (Ecotrin) 81 mg PO DAILY [facility] Last Admin: 03/02/18 09:59 Dose: 81 mg Atorvastatin Calcium (Lipitor) 40 mg PO DIN [facility] Last Admin: 03/02/18 18:07 Dose: 40 mg Home Med (Home Med) 1 unit PO Q12H [facility] Last Admin: 03/03/18 00:57 Dose: 1 unit Meropenem (Merrem Iv 1 Gm Premix) 1 gm in 50 mls @ 100 mls/hr IVPB Q8 [facility]; Protocol Last Admin: 03/03/18 05:31 Dose: 100 mls/hr Metoprolol Tartrate (Lopressor) 25 mg PO BID [facility] Last Admin: 02/28/18 11:41 Dose: 25 mg Pantoprazole Sodium (Protonix Ec Tab) 40 mg PO 0600 [facility] Last Admin: 03/03/18 05:31 Dose: 40 mg - Labs Labs: 03/03/18 06:00 03/03/18 06:00 PT 10.8 SECONDS (9.4-12.5) 02/27/18 17:45 INR 0.95 02/27/18 17:45 APTT 32.9 Seconds (25.1-36.5) 02/27/18 17:45 - Constitutional Appears: No Acute Distress, Chronically Ill - Head Exam Head Exam: NORMAL INSPECTION - Respiratory Exam Respiratory Exam: Decreased Breath Sounds - Cardiovascular Exam Cardiovascular Exam: +S1, +S2 - GI/Abdominal Exam GI & Abdominal Exam: Soft. absent: Tenderness Assessment and Plan - Assessment and Plan (Free Text) Plan: Assessment UTI with ESBL Klebsiella multiple sclerosis HTN dyslipidemia possible CVA in 1988 S/P hysterectomy S/P breast cyst biopsy S/P S/P tonsillectomy Plan continue Merrem day 2 - will need 7-10 days of antibiotics - may be able to swit ch to PO Ciprofloxacin in the next 24-48 hours since it is sensitive to it (but needed to keep patient first on Merrem) will continue to monitor clinically
--- NOTE | 2018-03-03 18:53 | CP.PCM.PN ---
Subjective - Date & Time of Evaluation Date of Evaluation: 03/03/18 Time of Evaluation: 11:30 - Subjective Subjective: PGY-1 Medicine Progress Note for Dr. Rao's service Patient seen and examined at bedside. Patient offers no acute complaints. Patient reports improved balance and sensation. Patient denies dysuria, fevers, chills, headaches, cp, sob, n/v, constipation or diarrhea. Objective - Vital Signs/Intake and Output Vital Signs (last 24 hours): Temp Pulse Resp BP Pulse Ox 97.9 F 52 L 16 139/82 95 03/03/18 14:00 03/03/18 14:00 03/03/18 14:00 03/03/18 14:00 03/03/18 14:00 Intake and Output: 03/03/18 03/03/18 06:59 18:59 Intake Total 1000 Output Total 800 Balance 200 - Medications Medications: Current Medications Acetaminophen (Tylenol 325mg Tab) 650 mg PO Q4H PRN PRN Reason: Headache Last Admin: 03/01/18 12:23 Dose: 650 mg Acetaminophen/Butalbital/Caffeine (Fioricet) 1 tab PO Q4H PRN PRN Reason: Headache Last Admin: 03/03/18 09:44 Dose: 1 tab Aspirin (Ecotrin) 81 mg PO DAILY [facility] Last Admin: 03/03/18 09:41 Dose: 81 mg Atorvastatin Calcium (Lipitor) 40 mg PO DIN [facility] Last Admin: 03/03/18 17:41 Dose: 40 mg Home Med (Home Med) 1 unit PO Q12H [facility] Last Admin: 03/03/18 12:50 Dose: 1 unit Meropenem (Merrem Iv 1 Gm Premix) 1 gm in 50 mls @ 100 mls/hr IVPB Q8 [facility]; Protocol Last Admin: 03/03/18 13:08 Dose: 100 mls/hr Ketorolac Tromethamine (Toradol) 15 mg IVP Q6 PRN PRN Reason: Headache Last Admin: 03/03/18 13:11 Dose: 15 mg Metoprolol Tartrate (Lopressor) 25 mg PO BID [facility] Last Admin: 02/28/18 11:41 Dose: 25 mg Pantoprazole Sodium (Protonix Ec Tab) 40 mg PO 0600 [facility] Last Admin: 03/03/18 05:31 Dose: 40 mg - Labs Labs: 03/03/18 06:00 03/03/18 06:00 PT 10.8 SECONDS (9.4-12.5) 02/27/18 17:45 INR 0.95 02/27/18 17:45 APTT 32.9 Seconds (25.1-36.5) 02/27/18 17:45 - Additional Findings Additional findings: - Constitutional Appears: Non-toxic, No Acute Distress - Head Exam Head Exam: NORMAL INSPECTION, NORMOCEPHALIC - Eye Exam Eye Exam: EOMI, Normal appearance. absent: Nystagmus - ENT Exam ENT Exam: Mucous Membranes Moist - Cardiovascular Exam Cardiovascular Exam: Bradycardia, REGULAR RHYTHM, +S1, +S2 - GI/Abdominal Exam GI & Abdominal Exam: Soft, Normal Bowel Sounds. 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 Treated with 1000g x 3 with solumedrol; Urine cx positive for klebsiella; Started patient on meropenem Plan: Acute Exacerbation of MS flare Neuro Consulted- Dr. Smith- MS exacerbation triggered by UTI, f/u outpatient PT/OT, continue Avonex, continue Solumedrol 1g IV for total of 3 days then discharge home, Fioricet 1 tab every 4 hours for MIJARES, consider 100mg PO gabapentin at bedtime for neuropathic pain. 02-28-18 MRI brain - Severe chronic demyelinating disease unchanged 02-28-18 CT head- No acute intracranial findings Methylprednisolone 1gm IV- day 3 and completed Ampyra 10mg q12 UTI ID consulted- Dr. Koch - pending blood and urine cultures, will monitor closely. 02/27/18 U/A- positive nitrates + small leukocyte esterase Meropenem Ucx positive for Klebsiella Hx of CVA Lipitor 40mg po din Aspirin 81mg po daily Hx of Headaches Tylenol 650mg po prn Fioricet 1 tab po q4h prn Toradol IV 15mg q6h prn PPx GI ppx- Protonix 40mg po DVT ppx- SCDs Dispo: Possible discharge tomorrow as per ID recommendations. Medical Management discussed with Dr. Jalen Neal PGY-1
[2018-03-04] MEDS: AMPYRA 10 MG PO SCH ×2 (01:41→12:59)
[2018-03-04] MEDS: Pantoprazole 40 mg EC Tab PO SCH (05:34)
[2018-03-04] MEDS: Meropenem IV 1 gm in NS 1 GM/50 ML BAG IVPB SCH ×3 (05:35→21:02)
[2018-03-04 08:54] LABS: EOS % 0.2 % (1.5-5.0); GRAN # 2.96 (1.4-6.5); GRAN % 62.4 % (50.0-68.0); HEMOGLOBIN 10.7 g/dL (12.0-16.0); LYMPH # 1.5 (1.2-3.4); LYMPH % 32.5 % (22.0-35.0); MEAN CELL VOLUME 90.2 fl (80.0-105.0); MEAN CORPUSCULAR HEMOGLOBIN 28.5 pg (25.0-35.0); MEAN CORPUSCULAR HGB CONC 31.6 g/dl (31.0-37.0); MEAN PLATELET VOLUME 10.6 fl (7.0-11.0); MONO # 0.2 (0.1-0.6); MONO % 4.9 % (1.0-6.0); RBC 3.76 10^6/uL (3.5-6.1); RED CELL DISTRIBUTION WIDTH 13.8 % (11.5-14.5); WHITE BLOOD COUNT 4.7 10^3/ul (4.5-11.0)
[2018-03-04 09:07] LABS: ALBUMIN 3.9 g/dL (3.0-4.8); ALT/SGPT 19 U/L (7-56); AST/SGOT 26 U/L (14-36); BLOOD UREA NITROGEN 16 mg/dL (7-21); CALCIUM 8.9 mg/dL (8.4-10.5); GFR NON-AFRICAN AMERICAN > 60
--- NOTE | 2018-03-04 14:49 | CP.PCM.PN ---
Subjective - Date & Time of Evaluation Date of Evaluation: 03/04/18 Time of Evaluation: 11:45 - Subjective Subjective: PGY-1 Medicine Progress Note for Dr. Blanchard's service Patient seen and examined at bedside. Patient offers no acute complaints. Patient denies chest pain, sob, dysuria, fevers, chills, headaches, n/v, constip ation or diarrhea. Objective - Vital Signs/Intake and Output Vital Signs (last 24 hours): Temp Pulse Resp BP Pulse Ox 97.3 F L 51 L 20 151/78 H 100 03/04/18 07:58 03/04/18 07:58 03/04/18 07:58 03/04/18 07:58 03/04/18 07:58 - Medications Medications: Current Medications Acetaminophen (Tylenol 325mg Tab) 650 mg PO Q4H PRN PRN Reason: Headache Last Admin: 03/01/18 12:23 Dose: 650 mg Acetaminophen/Butalbital/Caffeine (Fioricet) 1 tab PO Q4H PRN PRN Reason: Headache Last Admin: 03/03/18 09:44 Dose: 1 tab Aspirin (Ecotrin) 81 mg PO DAILY [facility] Last Admin: 03/04/18 09:57 Dose: 81 mg Atorvastatin Calcium (Lipitor) 40 mg PO DIN [facility] Last Admin: 03/03/18 17:41 Dose: 40 mg Home Med (Home Med) 1 unit PO Q12H [facility] Last Admin: 03/04/18 12:59 Dose: 1 unit Meropenem (Merrem Iv 1 Gm Premix) 1 gm in 50 mls @ 100 mls/hr IVPB Q8 [facility]; Protocol Last Admin: 03/04/18 12:59 Dose: 100 mls/hr Ketorolac Tromethamine (Toradol) 15 mg IVP Q6 PRN PRN Reason: Headache Last Admin: 03/03/18 13:11 Dose: 15 mg Metoprolol Tartrate (Lopressor) 25 mg PO BID [facility] Last Admin: 02/28/18 11:41 Dose: 25 mg Pantoprazole Sodium (Protonix Ec Tab) 40 mg PO 0600 [facility] Last Admin: 03/04/18 05:34 Dose: 40 mg - Labs Labs: 03/04/18 08:30 03/04/18 08:30 PT 10.8 SECONDS (9.4-12.5) 02/27/18 17:45 INR 0.95 02/27/18 17:45 APTT 32.9 Seconds (25.1-36.5) 02/27/18 17:45 - Additional Findings Additional findings: - Constitutional Appears: Non-toxic, No Acute Distress - Head Exam Head Exam: NORMAL INSPECTION, NORMOCEPHALIC - Eye Exam Eye Exam: EOMI, Normal appearance. absent: Nystagmus - ENT Exam ENT Exam: Mucous Membranes Moist - Cardiovascular Exam Cardiovascular Exam: Bradycardia, REGULAR RHYTHM, +S1, +S2 - GI/Abdominal Exam GI & Abdominal Exam: Soft, Normal Bowel Sounds. 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 Treated with 1000g x 3 with solumedrol; Urine cx positive for klebsiella; Started patient on meropenem, day 2. Plan: Acute Exacerbation of MS flare Neuro Consulted- Dr. Smith- MS exacerbation triggered by UTI, f/u outpatient PT/OT, continue Avonex, continue Solumedrol 1g IV for total of 3 days then discharge home, Fioricet 1 tab every 4 hours for MIJARES, consider 100mg PO gabapentin at bedtime for neuropathic pain. 02-28-18 MRI brain - Severe chronic demyelinating disease unchanged 02-28-18 CT head- No acute intracranial findings Methylprednisolone 1gm IV- day 3 and completed Ampyra 10mg q12 UTI ID consulted- Dr. Koch - pending blood and urine cultures, will monitor closely; Dr. Garcia- IV Meropenem until 03/05/18, then D/C with PO Cipro for 7-10 days. 02/27/18 U/A- positive nitrates + small leukocyte esterase Meropenem day 2 Ucx positive for Klebsiella Hx of CVA Lipitor 40mg po din Aspirin 81mg po daily Hx of Headaches Tylenol 650mg po prn Fioricet 1 tab po q4h prn Toradol IV 15mg q6h prn PPx GI ppx- Protonix 40mg po DVT ppx- SCDs Dispo: Possible discharge tomorrow as per ID recommendations. Medical Management discussed with Dr. Blanchard PGY-1 Sadaf Neal
--- NOTE | 2018-03-04 21:34 | CP.PCM.PN ---
Subjective - Date & Time of Evaluation Date of Evaluation: 03/04/18 Time of Evaluation: 11:40 - Subjective Subjective: No fevers, not in distress, afebrile, no nausea, no diarrhea. Objective - Vital Signs/Intake and Output Vital Signs (last 24 hours): Temp Pulse Resp BP Pulse Ox 97.6 F 56 L 20 141/81 99 03/04/18 14:00 03/04/18 14:00 03/04/18 14:00 03/04/18 14:00 03/04/18 14:00 - Medications Medications: Current Medications Acetaminophen (Tylenol 325mg Tab) 650 mg PO Q4H PRN PRN Reason: Headache Last Admin: 03/01/18 12:23 Dose: 650 mg Acetaminophen/Butalbital/Caffeine (Fioricet) 1 tab PO Q4H PRN PRN Reason: Headache Last Admin: 03/03/18 09:44 Dose: 1 tab Aspirin (Ecotrin) 81 mg PO DAILY [facility] Last Admin: 03/04/18 09:57 Dose: 81 mg Atorvastatin Calcium (Lipitor) 40 mg PO DIN [facility] Last Admin: 03/04/18 17:00 Dose: 40 mg Home Med (Home Med) 1 unit PO Q12H [facility] Last Admin: 03/04/18 12:59 Dose: 1 unit Meropenem (Merrem Iv 1 Gm Premix) 1 gm in 50 mls @ 100 mls/hr IVPB Q8 [facility]; Protocol Last Admin: 03/04/18 21:02 Dose: 100 mls/hr Ketorolac Tromethamine (Toradol) 15 mg IVP Q6 PRN PRN Reason: Headache Last Admin: 03/03/18 13:11 Dose: 15 mg Metoprolol Tartrate (Lopressor) 25 mg PO BID [facility] Last Admin: 02/28/18 11:41 Dose: 25 mg Pantoprazole Sodium (Protonix Ec Tab) 40 mg PO 0600 [facility] Last Admin: 03/04/18 05:34 Dose: 40 mg - Labs Labs: 03/04/18 08:30 03/04/18 08:30 PT 10.8 SECONDS (9.4-12.5) 02/27/18 17:45 INR 0.95 02/27/18 17:45 APTT 32.9 Seconds (25.1-36.5) 02/27/18 17:45 - Constitutional Appears: No Acute Distress, Chronically Ill - Head Exam Head Exam: NORMAL INSPECTION - Respiratory Exam Respiratory Exam: Decreased Breath Sounds - Cardiovascular Exam Cardiovascular Exam: +S1, +S2 - GI/Abdominal Exam GI & Abdominal Exam: Soft. absent: Tenderness Assessment and Plan - Assessment and Plan (Free Text) Plan: Assessment UTI with ESBL Klebsiella multiple sclerosis HTN dyslipidemia possible CVA in 1988 S/P hysterectomy S/P breast cyst biopsy S/P S/P tonsillectomy Plan continue Merrem day 3 - will need 7-10 days of antibiotics - may be able to switch to PO Ciprofloxacin in the next 24 hours since it is sensitive to it (but needed to keep patient first on Merrem) will continue to monitor clinically
[2018-03-04 22:27] VITALS: RESP 18
[2018-03-05] MEDS: AMPYRA 10 MG PO SCH ×2 (01:02→13:27)
[2018-03-05] MEDS: Pantoprazole 40 mg EC Tab PO SCH (05:21)
[2018-03-05] MEDS: Meropenem IV 1 gm in NS 1 GM/50 ML BAG IVPB SCH (05:22)
[2018-03-05 07:17] LABS: EOS # 0.1 (0.0-0.7); EOS % 1.6 % (1.5-5.0); GRAN # 2.39 (1.4-6.5); GRAN % 64.1 % (50.0-68.0); HEMOGLOBIN 10.6 g/dL (12.0-16.0); LYMPH # 1.1 (1.2-3.4); LYMPH % 28.7 % (22.0-35.0); MEAN CELL VOLUME 88.8 fl (80.0-105.0); MEAN CORPUSCULAR HEMOGLOBIN 28.3 pg (25.0-35.0); MEAN CORPUSCULAR HGB CONC 31.9 g/dl (31.0-37.0); MEAN PLATELET VOLUME 9.8 fl (7.0-11.0); MONO # 0.2 (0.1-0.6); MONO % 5.6 % (1.0-6.0); RBC 3.74 10^6/uL (3.5-6.1); RED CELL DISTRIBUTION WIDTH 13.9 % (11.5-14.5); WHITE BLOOD COUNT 3.7 10^3/ul (4.5-11.0)
[2018-03-05 07:36] LABS: ALBUMIN 3.7 g/dL (3.0-4.8); ALT/SGPT 28 U/L (7-56); AST/SGOT 27 U/L (14-36); BLOOD UREA NITROGEN 13 mg/dL (7-21); CALCIUM 8.7 mg/dL (8.4-10.5); GFR NON-AFRICAN AMERICAN > 60
[2018-03-05 10:29] VITALS: BP 119/77; PULSE 68; TEMP 97.6; O2SAT 97
--- NOTE | 2018-03-05 14:50 | CP.PCM.PN ---
Subjective - Date & Time of Evaluation Date of Evaluation: 03/05/18 Time of Evaluation: 12:10 - Subjective Subjective: Afebrile, no nausea, no fevers. No diarrhea. Objective - Vital Signs/Intake and Output Vital Signs (last 24 hours): Temp Pulse Resp BP Pulse Ox 97.6 F 68 18 119/77 97 03/05/18 06:00 03/05/18 06:00 03/05/18 06:00 03/05/18 06:00 03/05/18 06:00 Intake and Output: 03/05/18 03/05/18 06:59 18:59 Intake Total 120 Balance 120 - Labs Labs: 03/05/18 07:00 03/05/18 07:00 PT 10.8 SECONDS (9.4-12.5) 02/27/18 17:45 INR 0.95 02/27/18 17:45 APTT 32.9 Seconds (25.1-36.5) 02/27/18 17:45 - Constitutional Appears: No Acute Distress, Chronically Ill - Head Exam Head Exam: NORMAL INSPECTION - ENT Exam ENT Exam: Mucous Membranes Moist - Respiratory Exam Respiratory Exam: Decreased Breath Sounds - Cardiovascular Exam Cardiovascular Exam: +S1, +S2 - GI/Abdominal Exam GI & Abdominal Exam: Soft. absent: Tenderness Assessment and Plan - Assessment and Plan (Free Text) Plan: Assessment UTI with ESBL Klebsiella multiple sclerosis HTN dyslipidemia possible CVA in 1988 S/P hysterectomy S/P breast cyst biopsy S/P S/P tonsillectomy Plan on Merrem day 4 - will need 7-10 days of antibiotics - may be able to switch to PO Ciprofloxacinsince it is sensitive to it to complete the therapy (i.e 3-5 more days)
--- NOTE | 2018-03-05 16:23 | CP.PCM.DIS ---
Provider - Provider Date of Admission: 02/28/18 14:27 Attending physician: Osei Morales MD Consults: Dr. Smtih Time Spent in preparation of Discharge (in minutes): 45 Hospital Course - Lab Results Lab Results: Micro Results 02/27/18 22:31 Blood-Venous Blood Culture - Final NO GROWTH AFTER 5 DAYS 02/27/18 22:31 Blood-Venous Gram Stain - Final TEST NOT PERFORMED 02/27/18 22:47 Urine,Clean Catch Urine Culture - Final Klebsiella Pneumoniae Ssp Pneu Most Recent Lab Values WBC 3.7 10^3/ul (4.5-11.0) L D 03/05/18 07:00 RBC 3.74 10^6/uL (3.5-6.1) 03/05/18 07:00 Hgb 10.6 g/dL (12.0-16.0) L 03/05/18 07:00 Hct 33.2 % (36.0-48.0) L 03/05/18 07:00 MCV 88.8 fl (80.0-105.0) 03/05/18 07:00 MCH 28.3 pg (25.0-35.0) 03/05/18 07:00 MCHC 31.9 g/dl (31.0-37.0) 03/05/18 07:00 RDW 13.9 % (11.5-14.5) 03/05/18 07:00 Plt Count 203 10^3/uL (120.0-450.0) 03/05/18 07:00 MPV 9.8 fl (7.0-11.0) 03/05/18 07:00 Gran % 64.1 % (50.0-68.0) 03/05/18 07:00 Lymph % (Auto) 28.7 % (22.0-35.0) 03/05/18 07:00 [place] % (Auto) 5.6 % (1.0-6.0) 03/05/18 07:00 Eos % (Auto) 1.6 % (1.5-5.0) 03/05/18 07:00 Baso % (Auto) 0.0 % (0.0-3.0) 03/05/18 07:00 Gran # 2.39 (1.4-6.5) 03/05/18 07:00 Lymph # (Auto) 1.1 (1.2-3.4) L 03/05/18 07:00 [place] # (Auto) 0.2 (0.1-0.6) 03/05/18 07:00 Eos # (Auto) 0.1 (0.0-0.7) 03/05/18 07:00 Baso # (Auto) 0.00 K/mm3 (0.0-2.0) 03/05/18 07:00 ESR 62 mm/hr (0.0-20.0) H 02/27/18 17:45 Retic Count 1.06 % (0.5-1.5) 03/01/18 06:00 PT 10.8 SECONDS (9.4-12.5) 02/27/18 17:45 INR 0.95 02/27/18 17:45 APTT 32.9 Seconds (25.1-36.5) 02/27/18 17:45 Sodium 139 mmol/L (132-148) 03/05/18 07:00 Potassium 3.9 mmol/L (3.6-5.0) 03/05/18 07:00 Chloride 101 mmol/L (98-107) 03/05/18 07:00 Carbon Dioxide 34 mmol/L (21-33) H 03/05/18 07:00 Anion Gap 8 (10-20) L 03/05/18 07:00 BUN 13 mg/dL (7-21) 03/05/18 07:00 Creatinine 0.7 mg/dl (0.7-1.2) 03/05/18 07:00 Est GFR ( Amer) > 60 03/05/18 07:00 Est GFR (Non-Af Amer) > 60 03/05/18 07:00 Random Glucose 95 mg/dL (70-110) 03/05/18 07:00 Calcium 8.7 mg/dL (8.4-10.5) 03/05/18 07:00 Phosphorus 3.1 mg/dL (2.5-4.5) 02/27/18 17:45 Magnesium 2.4 mg/dL (1.7-2.2) H 02/27/18 17:45 Iron 90 ug/dL (45-180) 10/03/18 17:45 TIBC 349 ug/dL (265-497) 02/27/18 17:45 % Saturation 26 % (20-55) 02/27/18 17:45 Ferritin 45.6 ng/mL 02/28/18 06:00 Total Bilirubin 0.3 mg/dL (0.2-1.3) 03/05/18 07:00 AST 27 U/L (14-36) 03/05/18 07:00 ALT 28 U/L (7-56) 03/05/18 07:00 Alkaline Phosphatase 59 U/L (38-126) 03/05/18 07:00 Total Protein 7.5 g/dL (5.8-8.3) 03/05/18 07:00 Albumin 3.7 g/dL (3.0-4.8) 03/05/18 07:00 Globulin 3.8 gm/dL 03/05/18 07:00 Albumin/Globulin Ratio 1.0 (1.1-1.8) L 03/05/18 07:00 Triglycerides 212 mg/dL (35-160) H 02/27/18 17:45 Cholesterol 171 mg/dL (130-200) 02/27/18 17:45 LDL Cholesterol Direct 47 mg/dL (0-129) 02/27/18 17:45 HDL Cholesterol 72 mg/dL (29-60) H 02/27/18 17:45 Folate 5.9 ng/mL 02/28/18 06:00 Procalcitonin < 0.05 NG/ML (0.19-0.49) L 02/28/18 06:00 TSH 3rd Generation 1.77 mIU/mL (0.46-4.68) 02/27/18 17:45 Urine Color Yellow (YELLOW) 02/27/18 18:41 Urine Appearance Sl cloudy (CLEAR) 02/27/18 18:41 Urine pH 6.0 (4.7-8.0) 02/27/18 18:41 Ur Specific [place] 1.010 (1.005-1.035) 02/27/18 18:41 Urine Protein Negative mg/dL (<30 mg/dL) 02/27/18 18:41 Urine Glucose (UA) Negative mg/dL (NEGATIVE) 02/27/18 18:41 Urine Ketones Negative mg/dL (NEGATIVE) 02/27/18 18:41 Urine Blood Negative (NEGATIVE) 02/27/18 18:41 Urine Nitrate Positive (NEGATIVE) H 02/27/18 18:41 Urine Bilirubin Negative (NEGATIVE) 02/27/18 18:41 Urine Urobilinogen 0.2 E.U./dL (<1 E.U./dL) 02/27/18 18:41 Ur Leukocyte Esterase Small [place]/uL (NEGATIVE) H 02/27/18 18:41 Urine RBC Negative /hpf (0-2) 02/27/18 18:41 Urine WBC 2 - 5 /hpf (0-6) 02/27/18 18:41 Ur Epithelial Cells 3 - 4 /hpf (0-5) 02/27/18 18:41 Urine Bacteria Many (NEG) 02/27/18 18:41 - Hospital Course Hospital Course: Upon admission: 57 year old female with PMH of Multiple Sclerosis presents to the ED for elevated blood pressure 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 Patient reported it was in 180s but she did not have symptoms at that time. Patient has MS with last hospital admission due to relapse on 09/2014. Patient has been using cane to ambulate due to left sided weakness in upper and lower limbs. Weakness and numbness got worse yesterday on the same side. Left sided facial numbness and tingling reported as well without facial droop. She has been experiencing intermittent dizziness and increased difficulty ambulating lately and she knew that she is getting an MS flare. Patient reported that her daughter got URI last week and the patient got symptoms of dry cough, sore throat, nasal congestion for the past 5 days. She also reported that she had one episode of urine incontinence today but denied dysuria, urgency, frequency. Patient denies fevers, chills, shortness of breath, chest pain, dyspnea on exertion, abdominal pain, nausea, vomiting, diarrhea, back pain, neck pain, headache, or any other complaint. Hospital Course: 57 year old female admitted for elevated blood pressure, UTI, and MS flare. CT head resulted no acute intracranial findings. MRI head resulted severe chronic demyelinating disease, unchanged. Neurology, Dr. Smith, was consulted. Dr. Smith attributed symptoms to MS exacerbation triggered by UTI, and recommended f/u outpatient PT/OT, continue Avonex, initiate Solumedrol 1g IV for total of 3 days, Fioricet 1 tab every 4 hours for MIJARES, and consider 100mg PO gabapentin at bedtime for neuropathic pain. UA resulted leukocyte esterase and nitrates. Patient was started on 1gm Ceftriaxone on 02/28/2018 to 03/02/2018. Blood and urine cultures were obtained and ID, Dr. Koch was consulted. Blood cultures resulted within normal limits. Urine cultures resulted ESBL Klebsiella Pneuminiae. ID recommended 3 day course of IV Meropenem (03/02-03/05/2018), then switch to PO Ciprofloxacin for a total of 7 days including meropenem 3x dose. Patient was also seen by PT during hospital stay and was cleared for discharge home with recommendation of outpatient PT. Discharge plan: Patient is stable for discharge to home as per Dr. Blanchard. She was counseled to return to the emergency department if symptoms return or worsen. Patient is to follow up with primary medical doctor, Dr. Mulligan, within 3-5 days of discharge. Patient is to follow up with neurology, Dr. Alonso Smith, within 3-5 days of discharge. Patient is to take 500mg Ciprofloxacin PO 1 tablet daily for 7 days as prescribed and instructed. Patient is to take home medications as prescribed and instructed in discharge instructions. Reviewed all medications with patient, and she understands instructions. Patient understands and agrees with discharge plan. Disclaimer: Written above is a synopsis of patients current hospital admission. For full admission refer to EMR. Discharge Exam - Additional Findings Additional findings: - Constitutional Appears: Non-toxic, No Acute Distress - Head Exam Head Exam: NORMAL INSPECTION, NORMOCEPHALIC - Eye Exam Eye Exam: EOMI, Normal appearance. absent: Nystagmus - ENT Exam ENT Exam: Mucous Membranes Moist - Cardiovascular Exam Cardiovascular Exam: REGULAR RHYTHM, +S1, +S2 - GI/Abdominal Exam GI & Abdominal Exam: Soft, Normal Bowel Sounds. absent: Tenderness - Neurological Exam Neurological Exam: Alert, Awake - Psychiatric Exam Psychiatric exam: Normal Affect, Normal Mood - Skin Skin Exam: Intact, Normal Color, Warm Discharge Plan - Discharge Medications Prescriptions: Ciprofloxacin [Cipro] 500 mg PO DAILY #5 tab - Follow Up Plan Condition: GOOD Disposition: HOME/ ROUTINE Instructions: Multiple Sclerosis in Adults, Urinary Tract Infection, Adult (DC) Additional Instructions: 1. Patient is stable for discharge to home as per Dr. Blanchard. 2. Patient is instructed to follow up with primary medical doctor Dr. Mulligan within 3-7 days of discharge from hospital. Patient is to followup with neurologist Dr. Smith within 3-7 days of discharge from hospital. 3. Patient will continue all of her home medications as prescribed. In addition patient will be discharged with a 7 day course of ciprofloxacin 500mg. Patient will take the ciprofloxacin once a day starting on 03-06-18 and ending on [id number]. 4. Patient will return to hospital if her symptoms worsen or recur. 5. Patient understands the plan as above and agrees to the above.
== END 2018-03-05 14:16 | disposition home or self-care (01) | DRG 59 ==
LOC: ED 15:47 → ERH 18:42 → 5RSO 19:36 → OBSVTOIN 02-28 14:27
PROVIDERS: ADMIT Internal Medicine; ATTEND Internal Medicine
DX: G35 Multiple sclerosis (principal); N39.0 Urinary tract infection, site not specified; I10 Essential (primary) hypertension; J06.9 Acute upper respiratory infection, unspecified; Z86.73 Personal history of transient ischemic attack (TIA), and cerebral infarction without residual deficits; E78.5 Hyperlipidemia, unspecified; E78.00 Pure hypercholesterolemia, unspecified; B96.1 Klebsiella pneumoniae [K. pneumoniae] as the cause of diseases classified elsewhere; Z16.12 Extended spectrum beta lactamase (ESBL) resistance; Z88.5 Allergy status to narcotic agent; Z90.710 Acquired absence of both cervix and uterus